=== PATIENT | female | born 1985 | race Caucasian/White ===

== ENCOUNTER 2017-07-12 20:47 | Emergency (ER) | payer BC ==
[~2017-07-12] VITALS: Ht 167.6 cm; Wt 88.5 kg
[~2017-07-12 20:47] MED LIST: CELEXA 20MG20 MG/TAB PO; CLARITIN 1010 MG/TAB PO
[2017-07-12 20:51] VITALS: BP 109/74; TEMP 98
[2017-07-12] MEDS ORDERED: ZYRTEC 10MG10 MG PO (20:54)
[2017-07-12] MEDS ORDERED: OTEZLA PO (20:54)
[2017-07-12 22:08] VITALS: PULSE 88
== END 2017-07-12 22:08 | disposition home or self-care (01) ==
LOC: COL.ER 20:47
DX: S51.022A Laceration with foreign body of left elbow, initial encounter (principal); F32.9 Major depressive disorder, single episode, unspecified; W22.8XXA Striking against or struck by other objects, initial encounter; Y93.E1 Activity, personal bathing and showering

== ENCOUNTER 2017-07-22 17:57 | Emergency (ER) | payer BC ==
[~2017-07-22 17:57] MED LIST changes: +OTEZLA PO; +ZYRTEC 10MG10 MG PO
[2017-07-22 18:14] VITALS: BP 125/80; PULSE 69; TEMP 98.5
== END 2017-07-22 18:29 | disposition home or self-care (01) ==
LOC: COL.ER 17:57
DX: S51.012D Laceration without foreign body of left elbow, subsequent encounter (principal)

== ENCOUNTER → 2017-07-26 | Emergency (ER) | payer BC ==
[2017-07-26 18:07] VITALS: BP 149/84; PULSE 86; TEMP 98.6
== END ==
LOC: COL.ER 18:02
DX: Z48.02 Encounter for removal of sutures (principal)

== ENCOUNTER 2018-07-01 19:58 | Emergency (ER) | payer BC ==
[2018-07-01 20:02] VITALS: TEMP 98.2
[2018-07-01 22:28] VITALS: BP 124/80; PULSE 69
== END 2018-07-01 22:30 | disposition home or self-care (01) ==
LOC: COL.ER 19:58
DX: T63.441A Toxic effect of venom of bees, accidental (unintentional), initial encounter (principal); J45.909 Unspecified asthma, uncomplicated
CPT/HCPCS: J1200; J1885; J2405; J2930; J3010; J7040

== ENCOUNTER → 2020-05-16 | Outpatient (CLI) | payer OTHER | LOC: COL.RAD 12:54 | DX: M54.5 Low back pain (principal); R10.2 Pelvic and perineal pain | CPT/HCPCS: Q9967 ==

== ENCOUNTER 2021-04-24 17:46 | Emergency (ER) | payer OTHER ==
[~2021-04-24] VITALS: Ht 167.6 cm; Wt 95.5 kg
[2021-04-24 18:03] VITALS: TEMP 98.4
[2021-04-24 18:51] VITALS: BP 130/80; PULSE 81
== END 2021-04-24 18:52 | disposition home or self-care (01) ==
LOC: COL.ER 17:46
DX: R04.0 Epistaxis (principal)